=== PATIENT | female | born 1955 | race Two or more races ===

== ENCOUNTER 2024-11-13 01:20 | Emergency (ER) | payer MEDICARE, OTHER ==
[~2024-11-13] VITALS: Ht 157.5 cm; Wt 60.8 kg
[2024-11-13] MEDS: LEVETIRACETAM (500MG) 1,000 MG in IV NS 0.9% 90 ML IV STA (01:27)
[2024-11-13] MEDS: hydrALAZINE HCL IV 20 MG VIAL IV ONE ×2 (01:30→02:55)
[2024-11-13] MEDS ORDERED: SUCCINYLCHOLINE CHLORIDE 20 MG/ML VIAL IV ONE (01:30)
[2024-11-13] MEDS ORDERED: ETOMIDATE 2 MG/ML VIAL IV ONE (01:30)
[2024-11-13] MEDS ORDERED: LEVETIRACETAM (500MG) 500 MG/5 ML VIAL IV ONE (01:34)
[2024-11-13] MEDS ORDERED: hydrALAZINE HCL IV 20 MG VIAL ONE ×2 (01:34→02:52)
[2024-11-13 01:42] LABS: BASOPHILS % (AUTO) 0.6 % (0.0-2.0); EOSINOPHILS # (AUTO) 0.3 K/uL (0.0-0.7); EOSINOPHILS % (AUTO) 4.3 % (0.0-6.0); HEMATOCRIT 38 % (33-45); HEMOGLOBIN 13.3 g/dL (11.5-14.8); LYMPHOCYTES # (AUTO) 2.4 K/uL (0.8-4.8); LYMPHOCYTES % (AUTO) 32.5 % (20.0-44.0); MEAN CORPUSCULAR HEMOGLOBIN 29 PG (26.0-33.0); MEAN CORPUSCULAR HGB CONC 35 g/dl (31.0-36.0); MEAN CORPUSCULAR VOLUME 85 fL (82-100); MONOCYTES # (AUTO) 0.5 K/uL (0.1-1.30); MONOCYTES % (AUTO) 6.5 % (2.0-12.0); NEUTROPHILS # (AUTO) 4.2 K/uL (1.8-8.9); NEUTROPHILS % (AUTO) 56.1 % (43.0-81.0); PLATELET COUNT (AUTO) 200 K/uL (150-450); RED CELL DISTRIBUTION WIDTH 13.8 % (11.5-15.0); WHITE BLOOD COUNT (AUTO) 7.5 K/uL (4.3-11.0)
[2024-11-13] MEDS ORDERED: CT SWABBABLE VALVE TRANS SET 1 EA INFUS.SET MC ONE (01:48)
[2024-11-13] MEDS ORDERED: IOHEXOL-350 100 ML VIAL IV ONE (01:48)
[2024-11-13] MEDS ORDERED: IV NS 0.9% 500 ML IV ONE (01:49)
[2024-11-13 01:54] LABS: INR 0.99 (0.91-1.10); PARTIAL THROMBOPLASTIN TIME 24.4 SEC (24.3-34.3); PROTHROMBIN TIME 10.5 SECS (9.2-11.1)
[2024-11-13 02:06] LABS: ALBUMIN 3.6 g/dL (3.4-5.0); BILIRUBIN,TOTAL 0.4 mg/dL (0.2-1.0); CALCIUM, SERUM 8.7 mg/dL (8.5-10.1); CREATININE 0.9 mg/dL (0.6-1.3); POTASSIUM 3.1 mmol/L (3.5-5.1); TOTAL PROTEIN, SERUM 8.1 g/dL (6.4-8.2)
[2024-11-13 02:41] LABS: LACTIC ACID 1.2 mmol/L (0.4-2.0)
[2024-11-13] MEDS ORDERED: ONDANSETRON HCL/PF 4 MG/2 ML VIAL ONE ×2 (02:52→04:38)
[2024-11-13] MEDS: ONDANSETRON HCL/PF - ER 4 MG/2 ML VIAL IV ONE ×2 (02:55→04:41)
[2024-11-13] MEDS ORDERED: TENECTEPLASE 50 MG KIT IV ONE (03:00)
[2024-11-13] MEDS ORDERED: TNKASE WASTE DOCUMENTATION IV ONE (03:00)
[2024-11-13] MEDS: TENECTEPLASE 50 MG KIT IV ONE (03:05)
[2024-11-13 04:43] VITALS: BP 136/92; TEMP 98.2; O2SAT 98
== END 2024-11-13 04:44 ==
LOC: ER 01:22
DX: I63.9 Cerebral infarction, unspecified (principal); I10 Essential (primary) hypertension; Z88.0 Allergy status to penicillin
CPT/HCPCS: 99291; 70498; 96365; 96375; 71045; 93005; 70496; 85025; 83605; 85610; 85730; 36415; 80053; 84484; 83880; 82962; 96376; 70450; J0360 ×2; J2405 ×4; J7030 ×2; J7040; J1953 ×2; Q9967; J3101